=== PATIENT | male | born 1995 | race Caucasian/White ===

== ENCOUNTER 2023-05-11 20:41 | Emergency (ER) | payer OTHER ==
[2023-05-11 20:57] VITALS: BP 129/79; PULSE 60; RESP 18; TEMP 98.4; BMI 25.0
[2023-05-11] MEDS ORDERED: ACETAMINOPHEN 325 MG TABLET (FP) PO ONE (21:15)
[2023-05-11] MEDS ORDERED: IBUPROFEN 600 MG TABLET (FP) PO ONE (21:16)
[2023-05-11] MEDS ORDERED: IBUPROFEN 400 MG TABLET (FP) PO ONE (21:17)
[2023-05-11] MEDS ORDERED: DIPHTH,PERTUSS(ACELL),TET 0.5 ML DISP.SYRIN IM ONE ×2 (21:27→21:36)
== END 2023-05-11 22:15 | disposition home or self-care (01) ==
LOC: JERFT 20:41
PROC: 2W3EX1Z Immobilization of Right Hand using Splint (ICD-10-PCS; principal; 2023-05-11)
PROC: 3E0234Z Introduction of Serum, Toxoid and Vaccine into Muscle, Percutaneous Approach (ICD-10-PCS; 2023-05-11)
DX: S69.91XA Unspecified injury of right wrist, hand and finger(s), initial encounter (principal); M25.531 Pain in right wrist; M79.641 Pain in right hand; V00.831A Fall from motorized mobility scooter, initial encounter
CPT/HCPCS: 73090-TC-RT-FY; 73110-TC-RT-FY; 73130-TC-RT-FY; 90715